=== PATIENT | male | born 1940 | race Caucasian/White ===

== ENCOUNTER 2020-05-24 16:51 | Outpatient (REF) | payer MEDICARE, BC, SELFPAY | END 2020-05-24 16:52 | disposition home or self-care (01) | LOC: HO.LNP 16:51 | PROVIDERS: Visit Provider Hospitalist | DX: Z20.828 Contact with and (suspected) exposure to other viral communicable diseases (principal) | CPT/HCPCS: U0003 ==

== ENCOUNTER 2023-11-12 11:05 | Day surgery (SDC) | payer MEDICARE, SELFPAY ==
[2023-11-07 08:03] VITALS: BMI 25.5
--- NOTE | 2023-11-08 15:05 | HO.ANESPROP2 ---
Documented by User: Ashley Ball NP 11/08/23 15:05 HPI - Anesthesia Eval Consult details Narrative: 83yo M for Right Cataract Extraction IOL Insertion Medically Cleared No previous cataract on record [facility] Active Problems Active Problems: All Active Problems Encounter for screening laboratory testing for COVID-19 virus (Acute) Past Medical History Medical History Hyperlipidemia Murmur GERD (gastroesophageal reflux disease) HTN (hypertension) Surgical History Surgical History H/O colonoscopy Social History Social History Patient Tobacco Use Status: Never used Tobacco Advance Directives: No Advance Directives Information Provided: Yes Advance Directives on File: No Nutrition Risks: Surgical patient >75years Meds Allergies Allergy/AdvReac Type Severity Reaction Status Date / Time tomato Allergy Unknown Unknown Verified 11/12/23 12:08 Home Medications ?Medication ?Instructions ?Recorded ?Confirmed ?Last Taken ?Type amlodipine 10 mg tablet 10 mg PO DAILY 05/24/20 11/12/23 11/11/23 History atorvastatin 80 mg tablet 80 mg PO DAILY 05/24/20 11/12/23 11/11/23 History omeprazole 20 mg capsule,delayed 20 mg PO DAILY 05/24/20 11/12/23 11/11/23 History release ferrous sulfate 325 mg (65 mg 325 mg PO DAILY 11/07/23 11/12/23 11/11/23 History iron) tablet latanoprost 0.005 % eye drops 1 drp ophthalmic (eye) DAILY 11/07/23 11/12/23 11/11/23 History Exam Height,Weight and Vital Signs: Height 5 ft 9.29 in Weight 79 kg Assessment and Plan Assessment Anesthesia Assessment: Chart Reviewed Documented by User: Bonita Cannon MD 11/12/23 12:29 [facility] Past Medical History Medical History Hyperlipidemia Murmur GERD (gastroesophageal reflux disease) HTN (hypertension) Surgical History Surgical History H/O colonoscopy History of Problems with Anesthesia: No Social History Social History Patient Tobacco Use Status: Never used Tobacco Advance Directives: No Advance Directives Information Provided: Yes Advance Directives on File: No Nutrition Risks: Surgical patient >75years Meds Allergies Allergy/AdvReac Type Severity Reaction Status Date / Time tomato Allergy Unknown Unknown Verified 11/12/23 12:08 Home Medications ?Medication ?Instructions ?Recorded ?Confirmed ?Last Taken ?Type amlodipine 10 mg tablet 10 mg PO DAILY 05/24/20 11/12/23 11/11/23 History atorvastatin 80 mg tablet 80 mg PO DAILY 05/24/20 11/12/23 11/11/23 History omeprazole 20 mg capsule,delayed 20 mg PO DAILY 05/24/20 11/12/23 11/11/23 History release ferrous sulfate 325 mg (65 mg 325 mg PO DAILY 11/07/23 11/12/23 11/11/23 History iron) tablet latanoprost 0.005 % eye drops 1 drp ophthalmic (eye) DAILY 11/07/23 11/12/23 11/11/23 History Exam Airway Mallampati Class: III TM Dist: >3cm Neck ROM: Full Loose/Missing/Broken Teeth: No Heart: RRR Lungs: CTA Assessment and Plan Assessment Anesthesia Assessment: Anesthesia Plan Discussed Final Anesthetic Review History of Problems with Anesthesia: No NPO: Yes ASA Class: II Final Preanesthetic Review: Meds/Allgs Chart Reviewed, Consent Obtained/Reviewed and Anes Risks/Benef Reviewed Patient Risk: Low Procedure Risk: Low Anesthetic Plan Anesthetic Plan: MAC: Disposition: Standard PACU
[2023-11-12] MEDS: Tetracaine HCl/PF 0.5% Oph Sol 4 ML DROPS 1 DROP EYE-RIGHT (11:50)
[2023-11-12] MEDS: Tropicamide 1 % Ophth Sol 3 ML BTL 1 DROP EYE-RIGHT ×3 (11:51→12:09)
[2023-11-12] MEDS: Ketorolac Tromethamine 0.5% Op 10 ML DROPS 1 DROP EYE-RIGHT ×3 (11:54→12:12)
[2023-11-12] MEDS: Phenylephrine HCL 2.5% Oph SoL 2 ML BOTTLE 1 DROP EYE-RIGHT ×3 (11:57→12:15)
[2023-11-12] MEDS: Lactated Ringers 500 ML 50 ML IV (11:58)
[2023-11-12 12:06] VITALS: BP 141/77; PULSE 60; RESP 16; TEMP 36.3; O2SAT 98
--- NOTE | 2023-11-12 13:15 | P.PCNO_ITS ---
Ophthalmology Procedure Procedure Date of Service: 11/12/23 Ophthalmology Viscoelastic: Healon Duet Dual Pack Pro Ophthalmology Lenses: IOL Acrysof MP - MA60AC (20.5) Procedure Notes: PREOPERATIVE DIAGNOSIS: Decreased visual acuity right eye secondary to cataract POSTOPERATIVE DIAGNOSIS: Same PROCEDURE: Right cataract extraction with intraocular lens insertion SURGEON: Bhanu Colon M.D. ANESTHESIA: Topical/MAC ESTIMATED BLOOD LOSS: None COMPLICATIONS: None After obtaining informed consent, the patient was brought to the operating room suite and placed in the supine position. After adequate sedation per anesthesia, topical drops of Tetracaine were given to the right eye. The eye was then prepped and draped in the usual sterile fashion. The operating room microscope was then positioned over the operative eye and a lid speculum placed. A paracentesis was created. Viscoelastic was then instilled into the anterior chamber. A three plane incision was then created temporally, utilizing a 2.85 mm keratome. Capsulotomy forceps were then utilized to create a circular tear capsulotomy. Hydrodissection and hydrodelineation were carried out until adequate mobilization of the nucleus occurred. Phacoemulsification was then utilized to remove the dense central nu cleus followed by removal of the cortical material utilizing the automated aspiration irrigation unit. Viscoelastic was instilled into the posterior capsular bag followed by placement of a posterior chamber intraocular lens without difficulty. The residual Viscoelastic was then removed utilizing the automated IA machine. The wound was checked and found to be watertight. The patient tolerated the procedure well and the lid speculum was removed. Intracameral injection of Vigamox 0.1 mL followed by a subtenon injection of Kenalog-40 0.2 mL were administered. The patient will be seen in the a.m.
--- NOTE | 2023-11-12 13:15 | MHC.SHP ---
Pre-Procedural Eval Section A - 24 Hr Update-Section A only Date of Service: 11/12/23 The patient is an INPATIENT: No Changes since office visit: No Cold of Flu in the past 2 weeks, No New Medical Problems, No Changes in Medication and No Patient answered all questions The patient has been examined within 24 hours of the surgical procedure. The History & Physical has been completed within 30 days and I have reviewed it.: Yes Section B - Complete if H&P > 30 days Chief Complaint: Age-related nuclear cataract, right eye Allergies: Allergies Allergy/AdvReac Type Severity Reaction Status Date / Time tomato Allergy Unknown Unknown Verified 11/12/23 12:08 Plan Diagnosis/Plan: Unchanged I have reviewed the history and physical and performed a pertinent physical examination on my patient. No changes have occurred unless specified. Time Spent With Patient Time: Total time managing care of this patient today ____ minutes.
[2023-11-12] MEDS: Acetaminophen 325 MG TABLET 975 MG PO (14:07)
[2023-11-12 14:18] VITALS: BP 127/76; PULSE 58; RESP 16; TEMP 36.5; O2SAT 97
== END 2023-11-12 14:21 | disposition home or self-care (01) ==
PROVIDERS: PCP Family Medicine; Visit Provider Ophthalmology
PROC: (CPT 66985; principal; 2023-11-12 11:50)
DX: H25.11 Age-related nuclear cataract, right eye (principal); H52.4 Presbyopia; H40.1131 Primary open-angle glaucoma, bilateral, mild stage; H18.413 Arcus senilis, bilateral; I10 Essential (primary) hypertension; E78.00 Pure hypercholesterolemia, unspecified; K21.9 Gastro-esophageal reflux disease without esophagitis; Z79.899 Other long term (current) drug therapy
CPT/HCPCS: 66984; J2250; J3010; J3301; V2630

== ENCOUNTER 2023-11-26 08:50 | Day surgery (SDC) | payer MEDICARE, SELFPAY ==
[2023-11-07 08:06] VITALS: BMI 25.5
--- NOTE | 2023-11-22 15:19 | HO.ANESPROP2 ---
Documented by User: Ashley Ball NP 11/22/23 15:19 HPI - Anesthesia Eval Consult details Narrative: Left Cataract Extraction IOL Insertion s/p Right eye 11/12/23: Fent 50, Midaz 0.5 PMFSH Active Problems Active Problems: All Active Problems Encounter for screening laboratory testing for COVID-19 virus (Acute) Past Medical History Medical History Hyperlipidemia Murmur GERD (gastroesophageal reflux disease) HTN (hypertension) Surgical History Surgical History H/O colonoscopy History of Problems with Anesthesia: No Social History Social History Patient Tobacco Use Status: Never used Tobacco Advance Directives: No (unknown) Advance Directives Information Provided: Yes Advance Directives on File: No Nutrition Risks: Surgical patient >75years Meds Allergies Allergy/AdvReac Type Severity Reaction Status Date / Time acetaminophen Allergy Intermediate itching/swe Verified 11/13/23 14:47 ating/dizzi ness tomato Allergy Unknown Unknown Verified 11/12/23 12:08 Home Medications ?Medication ?Instructions ?Recorded ?Confirmed ?Last Taken ?Type amlodipine 10 mg tablet 10 mg PO DAILY 05/24/20 11/12/23 11/11/23 History atorvastatin 80 mg tablet 80 mg PO DAILY 05/24/20 11/12/23 11/11/23 History omeprazole 20 mg capsule,delayed 20 mg PO DAILY 05/24/20 11/12/23 11/11/23 History release ferrous sulfate 325 mg (65 mg 325 mg PO DAILY 11/07/23 11/12/23 11/11/23 History iron) tablet latanoprost 0.005 % eye drops 1 drp ophthalmic (eye) DAILY 11/07/23 11/12/23 11/11/23 History Exam Height,Weight and Vital Signs: Height 5 ft 9.29 in Weight 79 kg Assessment and Plan Final Anesthetic Review History of Problems with Anesthesia: No Documented by User: Bonita Cannon MD 11/26/23 09:40 PMF Past Medical History Medical History Hyperlipidemia Murmur GERD (gastroesophageal reflux disease) HTN (hypertension) Surgical History Surgical History H/O colonoscopy Social History Social History Patient Tobacco Use Status: Never used Tobacco Advance Directives: No (unknown) Advance Directives Information Provided: Yes Advance Directives on File: No Nutrition Risks: Surgical patient >75years Meds Allergies Allergy/AdvReac Type Severity Reaction Status Date / Time acetaminophen Allergy Intermediate itching/swe Verified 11/13/23 14:47 ating/dizzi ness tomato Allergy Unknown Unknown Verified 11/12/23 12:08 Home Medications ?Medication ?Instructions ?Recorded ?Confirmed ?Last Taken ?Type amlodipine 10 mg tablet 10 mg PO DAILY 05/24/20 11/12/23 11/11/23 History atorvastatin 80 mg tablet 80 mg PO DAILY 05/24/20 11/12/23 11/11/23 History omeprazole 20 mg capsule,delayed 20 mg PO DAILY 05/24/20 11/12/23 11/11/23 History release ferrous sulfate 325 mg (65 mg 325 mg PO DAILY 11/07/23 11/12/23 11/11/23 History iron) tablet latanoprost 0.005 % eye drops 1 drp ophthalmic (eye) DAILY 11/07/23 11/12/23 11/11/23 History Assessment and Plan Assessment Anesthesia Assessment: Anesthesia Plan Discussed and Chart Reviewed Final Anesthetic Review NPO: Yes ASA Class: II Final Preanesthetic Review: Meds/Allgs Chart Reviewed, Consent Obtained/Reviewed and Anes Risks/Benef Reviewed Patient Risk: Low Procedure Risk: Low Anesthetic Plan Anesthetic Plan: MAC: Disposition: Standard PACU
[2023-11-26 08:55] VITALS: BP 124/86; PULSE 66; RESP 16; TEMP 36.4; O2SAT 99; BMI 25.5
[2023-11-26] MEDS: Tetracaine HCl/PF 0.5% Oph Sol 4 ML DROPS 1 DROP EYE-LEFT (09:04)
[2023-11-26] MEDS: Cyclopentolate 1 % Ophth Sol 2 ML DRPBTL 1 DROP EYE-LEFT ×3 (09:05→09:21)
[2023-11-26] MEDS: Tropicamide 1 % Ophth Sol 3 ML BTL 1 DROP EYE-LEFT ×3 (09:07→09:23)
[2023-11-26] MEDS: Lactated Ringers 500 ML 50 ML IV (09:09)
[2023-11-26] MEDS: Ketorolac Tromethamine 0.5% Op 10 ML DROPS 1 DROP EYE-LEFT ×3 (09:09→09:25)
[2023-11-26] MEDS: Phenylephrine HCL 2.5% Oph SoL 2 ML BOTTLE 1 DROP EYE-LEFT ×3 (09:11→09:27)
--- NOTE | 2023-11-26 10:10 | MHC.SHP ---
Pre-Procedural Eval Section A - 24 Hr Update-Section A only Date of Service: 11/26/23 The patient is an INPATIENT: No Changes since office visit: No Cold of Flu in the past 2 weeks, No New Medical Problems, No Changes in Medication and No Patient answered all questions The patient has been examined within 24 hours of the surgical procedure. The History & Physical has been completed within 30 days and I have reviewed it.: Yes Section B - Complete if H&P > 30 days Chief Complaint: Age-related nuclear cataract, left eye Allergies: Allergies Allergy/AdvReac Type Severity Reaction Status Date / Time acetaminophen Allergy Intermediate itching/swe Verified 11/13/23 14:47 ating/dizzi ness tomato Allergy Unknown Unknown Verified 11/12/23 12:08 Plan Diagnosis/Plan: Unchanged I have reviewed the history and physical and performed a pertinent physical examination on my patient. No changes have occurred unless specified. Time Spent With Patient Time: Total time managing care of this patient today ____ minutes.
--- NOTE | 2023-11-26 10:10 | HO.PNOPHT ---
Ophthalmology Procedure Procedure Date of Service: 11/26/23 Ophthalmology Viscoelastic: Healon Duet Dual Pack Pro Ophthalmology Lenses: IOL Acrysof MP - MA60AC (21.5) Procedure Notes: PREOPERATIVE DIAGNOSIS: Decreased visual acuity left eye secondary to cataract POSTOPERATIVE DIAGNOSIS: Same PROCEDURE: Left cataract extraction with intraocular lens insertion SURGEON: Bhanu Colon M.D. ANESTHESIA: Topical/MAC ESTIMATED BLOOD LOSS: None COMPLICATIONS: None After obtaining informed consent, the patient was brought to the operation room suite and placed in the supine position. After adequate sedation per anesthesia, topical drops of Tetracaine were given to the left eye. The eye was then prepped and draped in the usual sterile fashion. The operating room microscope was then positioned over the operative eye and a lid speculum placed. A paracentesis was created. Viscoelastic was then instilled into the anterior chamber. A three plane incision was then created temporally, utilizing a 2.85 mm keratome. Capsulotomy forceps were then utilized to create a circular tear capsulotomy. Hydrodissection and hydrodelineation were carried out until adequate mobilization of the nucleus occurred. Phacoemulsification was then utilized to remove the dense central nucleus followed by removal of the cortical material utilizing the automated aspiration irrigation unit. Viscoat elastic was instilled into the posterior capsular bag followed by placement of a posterior chamber intraocular lens without difficulty. The residual Viscoat elastic was then removed utilizing the automated IA machine. The wound was check and found to be watertight. The patient tolerated the procedure well and the lid speculum was removed. Intracameral injection of Vigamox 0.1 mL followed by a subtenon injection of Kenalog-40 0.2 mL were administered. The patient will be seen in the a.m.
[2023-11-26 10:39] VITALS: BP 114/69; PULSE 48; RESP 16; TEMP 36.6; O2SAT 97
== END 2023-11-26 10:51 | disposition home or self-care (01) ==
PROVIDERS: PCP Family Medicine; Visit Provider Ophthalmology
PROC: (CPT 66985; principal; 2023-11-26 10:00)
DX: H25.12 Age-related nuclear cataract, left eye (principal); H52.4 Presbyopia; H40.1131 Primary open-angle glaucoma, bilateral, mild stage; H18.413 Arcus senilis, bilateral; H43.393 Other vitreous opacities, bilateral; I10 Essential (primary) hypertension; Z79.899 Other long term (current) drug therapy
CPT/HCPCS: 66984; J2250; J2405; J3010; J3301; V2630